=== PATIENT | female | born 1955 | race Caucasian/White ===

== ENCOUNTER 2020-10-26 14:00 | Emergency (ER) | payer OTHER, SELFPAY ==
[2020-10-26 14:15] VITALS: BP 116/75; PULSE 78; RESP 16; TEMP 36.4; O2SAT 99
--- NOTE | 2020-10-26 14:55 | ED.SKABFB ---
HPI - Skin/Abscess/Foreign Bdy General Chief complaint: Skin/Abscess/Foreign Body Stated complaint: pos insect bite/sting Source: patient and RN notes reviewed Limitations: no limitations History of Present Illness HPI narrative: The patient, previously mostly healthy on no meds, presents with skin eruption. Patient's states she is right-handed and has a couple, shorter 2-day history of right forearm eruption. She felt she may have had an insect bite just a day and a half ago which resulted about a quarter size swelling. Now this is much larger ; she is said in the past she has been bitten with strong response like in her lower extremities. No fever, streaking, abscess/induration; the area has a well demarcated border around it; discussed possible causes [patient, allergic] and will treat broadly Related Data Allergies Allergy/AdvReac Type Severity Reaction Status Date / Time Penicillins Allergy Other Verified 10/26/20 14:32 Review of Systems Review of Systems: Narrative: General/Constitutional: No weight loss,fever Eyes: N0: Redness,discharge Ears/Nose/Throat: No: Epistaxis,ear discharge Respiratory: Denies: Hemoptysis Gastrointestinal: No Vomiting, Bleeding-rectal Skin: No Lumps, eruption Neurologic: No Focal Weakness,Sz Hematologic: Denies: Petechiae/Purpura Psychiatric: No: Suicida ideationl All Other Systems: Reviewed and Negative PMFSH Comments At time of signature, agree with nursing past medical, surgical, social and family history. There is no relevant family history pertinent to the presenting complaint Exam Narrative: Exam Narrative: General Appearance: Well nourished, Normocephalic, Conjunctiva clear Ear: External ear normal Nose: Normal nose, Nare clear Mouth/Throat: Normal appearing, Supple Respiratory: Airway patent, No respiratory distress Musculoskeletal: Moves all extremities, Non tender Spine/Back: Normal ROM Skin: Warm, Dry ; erysipeloid hand-sized well demarcated plaque-like skin eruption of left forerm Neurological: A&O x3 Normal mood, Normal affect Course Vital Signs Vital signs: Vital Signs Temperature 97.6 F 10/26/20 14:15 Pulse Rate 78 10/26/20 14:15 Respiratory Rate 16 10/26/20 14:15 Blood Pressure 116/75 10/26/20 14:15 Pulse Oximetry 99 10/26/20 14:15 Temperature 97.6 F 10/26/20 14:15 Pulse Rate 78 10/26/20 14:15 Respiratory Rate 16 10/26/20 14:15 Blood Pressure 116/75 10/26/20 14:15 Pulse Oximetry 99 10/26/20 14:15 Discharge Plan Discharge Clinical Impression: Pruritic condition, Infection of skin Patient Disposition: Home, Self-Care Condition: Stable Instructions: Antibiotic Form, Cellulitis (ED) Additional Instructions: Take clindamycin with food, antiacid or probiotic; stop if diarrhea occurs Keep photo log of area, return to hospital if worsens You may use OTC preps [tylenol, Benadryl] Prescriptions: New clindamycin HCl 300 mg capsule 300 mg PO TID Qty: 15 RF: 0 prednisone 20 mg tablet 40 mg PO DAILY Qty: 6 RF: 0 Follow-up/Referrals: UNKNOWN,DOCTOR [Primary Care Provider] -
== END 2020-10-26 15:00 | disposition home or self-care (01) ==
PROVIDERS: Emergency Provider Emergency Medicine
DX: L08.9 Local infection of the skin and subcutaneous tissue, unspecified (principal); L29.9 Pruritus, unspecified
CPT/HCPCS: 99213; G0463

== ENCOUNTER → 2023-05-13 08:38 | Outpatient (CLI) | payer MEDICARE, SELFPAY ==
--- NOTE | ~2023-05-13 | MM_ITS ---
EXAMINATION: MM screening patricia BI w charley HISTORY: Screening mammogram TECHNIQUE: Craniocaudal and mediolateral oblique 3-D tomosynthesis images were obtained and synthetic 2-D images were generated. CAD analysis was submitted and interpreted. COMPARISON: No prior mammogram is available for comparison at this institution. BREAST PARENCHYMAL COMPOSITION: The breasts are heterogeneously dense, which may obscure small masses . FINDINGS: No suspicious mass, calcification, or architectural distortion are identified in either herbert ast to suggest malignancy. IMPRESSION: 1. No mammographic evidence of malignancy. 2. Recommend routine screening mammography in one year. BI-RADS Category 1: Negative Reviewed, dictated and finalized at location A. T[employer] ASSOC[employer]ATE
== END ==
PROVIDERS: PCP Family Medicine; Visit Provider Physician Assistant Medical
DX: Z12.31 Encounter for screening mammogram for malignant neoplasm of breast (principal)
CPT/HCPCS: 77063; 77067